=== PATIENT | male | born 1970 | race American Indian/Alaskan Native ===

== ENCOUNTER 2019-09-09 13:58 | Emergency (ER) | payer SELFPAY ==
[2019-09-09] MEDS ORDERED: COLCHICINE 0.6 MG CAP PO ONE (21:23)
[2019-09-09] MEDS ORDERED: oxyCODONE /ACETAMINOPHEN 5-325MG TAB PO ONE (21:23)
[2019-09-09] MEDS ORDERED: KETOROLAC 30 MG/1 ML INJ IM ONE (21:23)
[2019-09-09] MEDS ORDERED: dexAMETHasone 20 MG/5 ML VIAL IM ONE (21:23)
[2019-09-09 21:53] VITALS: BP 137/84
--- NOTE | 2019-09-09 23:02 | Emergency Department Report ---
ED General Adult HPI - General Chief complaint: Pain General Stated complaint: GOUT Source: patient Mode of arrival: Ambulatory Limitations: No Limitations - History of Present Illness Initial comments: Patient is a 49-year-old -[place] male with a history of chronic osteoarthritis and gouty arthropathy who presents to the ED with conjugate of acute onset persistence of the bilateral knee and ankle joint pains and swelling, and bilateral hand and wrist pain and swelling for the last 3 days worse the last 2 days. Patient states that the patient has been persistent and that he is unable to walk or sleep because of worsening pain. The patient denies dizziness, fall, traumatic injury, nausea, vomiting, diarrhea, fever, chills, chest pain or shortness of breath, heavy lifting, or low back pain. MD Complaint: Diffuse polyarticular joint pains, swelling -: Sudden, days(s) (3) Location: upper extremity (hands and wrists bilaterally), lower extremity (bilateral knees and ankles) Radiation: non-radiation Severity scale (0 -10): 8 Quality: aching, sharp Consistency: constant Improves with: none Worsens with: movement Associated Symptoms: denies other symptoms. denies: confusion, chest pain, cough, headaches, loss of appetite, malaise, shortness of breath, syncope, weakness, other Treatments Prior to Arrival: none - Related Data Home Medications Medication Instructions Recorded Confirmed Last Taken Indomethacin [Indocin] 11/09/13 11/09/13 Unknown lisinopriL [Zestril TAB] 11/09/13 11/09/13 Unknown Previous Rx's Medication Instructions Recorded Last Taken Type lisinopriL [Zestril TAB] 10 mg PO QDAY #30 tablet 11/09/13 Unknown Rx HYDROcodone/APAP 5-325 [[place] 1 each PO Q6HR PRN #12 tablet 07/09/14 Unknown Rx 5/325] Indomethacin 50 mg PO Q8H #30 capsule 07/09/14 Unknown Rx Prednisone [predniSONE 10 mg 10 mg PO .TAPER #1 tab.ds.pk 07/09/14 Unknown Rx (6-Day Pack, 21 Tabs)] Colchicine 0.6 mg PO Q8H PRN #15 capsule 09/09/19 Unknown Rx Ketorolac [Toradol] 10 mg PO Q8H PRN #20 tablet 09/09/19 Unknown Rx predniSONE [Deltasone] 60 mg PO QDAY #15 tab 02/02/20 Unknown Rx traMADoL [Ultram] 50 mg PO Q6HR PRN #12 tablet 09/09/19 Unknown Rx Allergies Allergy/AdvReac Type Severity Reaction Status Date / Time No Known Allergies Allergy Unverified 11/09/13 08:59 ED Review of Systems ROS: Stated complaint: GOUT Other details as noted in HPI Constitutional: denies: chills, fever Eyes: denies: eye pain, eye discharge, vision change ENT: denies: ear pain, throat pain Respiratory: denies: cough, shortness of breath, wheezing Cardiovascular: denies: chest pain, palpitations Endocrine: no symptoms reported Gastrointestinal: denies: abdominal pain, nausea, diarrhea Genitourinary: denies: urgency, dysuria Musculoskeletal: joint swelling (Bilateral wrists, hands, knees and ankles), arthralgia (Bilateral knees, ankles, hands and wrists), myalgia. denies: back pain Skin: denies: rash, lesions Neurological: denies: headache, weakness, paresthesias Psychiatric: denies: anxiety, depression Hematological/Lymphatic: denies: easy bleeding, easy bruising ED Past Medical Hx - Past Medical History Previous Medical History?: Yes Hx Hypertension: Yes (2010) Additional medical history: Gout - Surgical History Past Surgical History?: Yes Additional Surgical History: Skin graft secondary to barba - Social History Smoking Status: Current Every Day Smoker Substance Use Type: Alcohol - Medications Home Medications: Home Medications Medication Instructions Recorded Confirmed Last Taken Type Indomethacin [Indocin] 11/09/13 11/09/13 Unknown History lisinopriL [Zestril TAB] 11/09/13 11/09/13 Unknown History lisinopriL [Zestril TAB] 10 mg PO QDAY #30 tablet 11/09/13 Unknown Rx HYDROcodone/APAP 5-325 [[place] 1 each PO Q6HR PRN #12 tablet 07/09/14 Unknown Rx 5/325] Indomethacin 50 mg PO Q8H #30 capsule 07/09/14 Unknown Rx Prednisone [predniSONE 10 mg 10 mg PO .TAPER #1 tab.ds.pk 07/09/14 Unknown Rx (6-Day Pack, 21 Tabs)] Colchicine 0.6 mg PO Q8H PRN #15 capsule 09/09/19 Unknown Rx Ketorolac [Toradol] 10 mg PO Q8H PRN #20 tablet 09/09/19 Unknown Rx predniSONE [Deltasone] 60 mg PO QDAY #15 tab 09/09/19 Unknown Rx traMADoL [Ultram] 50 mg PO Q6HR PRN #12 tablet 09/09/19 Unknown Rx ED Physical Exam - General Limitations: No Limitations General appearance: alert, in no apparent distress - Head Head exam: Present: atraumatic, normocephalic, normal inspection - Eye Eye exam: Present: normal appearance, PERRL, EOMI Pupils: Present: normal accommodation - ENT ENT exam: Present: normal exam, normal orophraynx, mucous membranes moist, TM's normal bilaterally, normal external ear exam - Neck Neck exam: Present: normal inspection, full ROM - Respiratory Respiratory exam: Present: normal lung sounds bilaterally. Absent: respiratory distress, wheezes, rales, chest wall tenderness, accessory muscle use, prolonged expiratory - Cardiovascular Cardiovascular Exam: Present: regular rate, normal rhythm, normal heart sounds. Absent: systolic murmur, diastolic murmur, rubs, gallop - GI/Abdominal GI/Abdominal exam: Present: soft, normal bowel sounds. Absent: tenderness, guarding, hyperactive bowel sounds, hypoactive bowel sounds, mass - Extremities Exam Extremities exam: Present: normal inspection, tenderness (Bilateral knees, ankles, wrists and hands), normal capillary refill, joint swelling (Bilateral knees, ankles, hands and wrists) - Back Exam Back exam: Present: normal inspection, full ROM. Absent: tenderness, CVA tenderness (R), CVA tenderness (L), muscle spasm, paraspinal tenderness - Neurological Exam Neurological exam: Present: alert, oriented X3, CN II-XII intact, normal gait, reflexes normal - Psychiatric Psychiatric exam: Present: normal affect, normal mood - Skin Skin exam: Present: warm, dry, intact, normal color. Absent: rash ED Course Vital Signs 09/09/19 09/09/19 15:13 21:52 Temperature 97.8 F 97.9 F Pulse Rate 73 76 Respiratory 18 16 Rate Blood Pressure 168/101 Blood Pressure 137/84 [Right] O2 Sat by Pulse 98 96 Oximetry ED Medical Decision Making - Medical Decision Making This is a 49-year-old male with a history of chronic gout and osteoarthritis who presented to the ED with complaint of persistent bilateral knees, ankles, wrists and hand pain with swelling. In the ED, patient is alert and oriented 3 and is not in distress but appears in significant pain. In the ED, patient was treated for pain and discharged home on pain medications and was advised to follow-up with his primary care physician in 5-7 days for reevaluation or return to the ED immediately if symptoms get worse. - Differential Diagnosis Gouty arthropathy; Osteoarthritis; muscle strains; muscle spasm Critical care attestation.: If time is entered above; I have spent that time in minutes in the direct care of this critically ill patient, excluding procedure time. ED Disposition Clinical Impression: Acute gouty arthropathy, Chronic osteoarthritis Disposition: TO HOME OR SELFCARE Is pt being admited?: No Does the pt Need Aspirin: No Condition: Stable Instructions: Acute Gouty Arthritis (ED), Osteoarthritis (ED) Additional Instructions: Take medication with food, drink plenty of fluids and follow-up with her primary care physician in 7-10 days for reevaluation. Return to the ED immediately if symptoms get worse. Prescriptions: Colchicine 0.6 mg PO Q8H PRN #15 capsule PRN Reason: Pain , Severe (7-10) predniSONE [Deltasone] 60 mg PO QDAY #15 tab Ketorolac [Toradol] 10 mg PO Q8H PRN #20 tablet PRN Reason: Pain traMADoL [Ultram] 50 mg PO Q6HR PRN #12 tablet PRN Reason: Pain Referrals: KORINA CH MD [Staff Physician] - 3-5 Days Time of Disposition: 23:00 Print Language: UZBEK
== END 2019-09-09 23:22 | disposition home or self-care (01) ==
LOC: ED 13:58
DX: M17.0 Bilateral primary osteoarthritis of knee (principal); M10.061 Idiopathic gout, right knee; M10.062 Idiopathic gout, left knee; I10 Essential (primary) hypertension; F17.200 Nicotine dependence, unspecified, uncomplicated; Z79.899 Other long term (current) drug therapy
CPT/HCPCS: 96372; 99282; J1100; J1885

== ENCOUNTER 2020-07-30 09:15 | Outpatient (CLI) | payer OTHER ==
--- NOTE | 2020-07-30 11:12 | XRay Report ---
XR ankle BILAT 2V INDICATION / CLINICAL INFORMATION: ANKLE PAIN. COMPARISON: None available. FINDINGS: No acute fracture. Normal alignment. Moderate left greater than right degenerative changes of ankle and hindfoot. No destructive osseous lesion or suspicious periosteal reaction. Impression: 1. Moderate left greater than right ankle and hindfoot osteoarthritis. Signer Name: Darrian Yancey MD Signed: 07/30/2020 11:07 AM Workstation Name: [id number]
== END 2020-07-30 09:16 | disposition home or self-care (01) ==
LOC: XRAY 09:15
PROVIDERS: ATTEND Internal Medicine
DX: M19.072 Primary osteoarthritis, left ankle and foot (principal); M19.071 Primary osteoarthritis, right ankle and foot

== ENCOUNTER 2020-11-17 09:56 | Outpatient (CLI) | payer OTHER ==
--- NOTE | 2020-11-17 11:50 | XRay Report ---
LUMBOSACRAL SPINE 3 VIEWS INDICATION: BACK PAIN. COMPARISON: None. IMPRESSION: Normal alignment. Mild to moderate degenerative disc disease is identified at L1-2, L2- 3 and L5-S1. L2-3 appears to be the most affected level where there is bridging or near bridging late ral osteophytes. The facet joints are unremarkable. No acute osseous or soft tissue abnormality. LEFT ELBOW 2 VIEWS INDICATION: Left elbow pain. COMPARISON: None. IMPRESSION: No acute osseous or soft tissue abnormality. No significant DJD. 3 surgical clips are noted in the posterior soft tissues, correlate with history. RIGHT WRIST 2 VIEWS INDICATION: Right wrist pain. COMPARISON: None. IMPRESSION: No acute osseous or soft tissue abnormality. There appears to be subtle deformity of the distal ulna which could represent a chronic healed fracture, correlate with history. The carpal bone s are unremarkable. No significant DJD. Signer Name: Santy Walls Jr, MD Signed: 11/17/2020 11:30 AM Workstation Name: [id number]
--- NOTE | 2020-11-17 12:07 | XRay Report ---
BILATERAL SHOULDER 6 VIEW(S) INDICATION / CLINICAL INFORMATION: Disability adjudication COMPARISON: None available. FINDINGS: RIGHT SHOULDER: BONES / JOINT(S): No acute fracture or subluxation. Mild right glenohumeral joint degenerative arthro sis. SOFT TISSUES: No significant abnormality. ADDITIONAL FINDINGS: None. LEFT SHOULDER: BONES / JOINT(S): No acute fracture or subluxation. Moderate left glenohumeral joint degenerative art hrosis. SOFT TISSUES: No significant abnormality. ADDITIONAL FINDINGS: None. Signer Name: Jose Nathan MD Signed: 11/17/2020 11:57 AM Workstation Name: [id number]
== END 2020-11-17 09:57 | disposition home or self-care (01) ==
LOC: XRAY 09:56
PROVIDERS: ATTEND Internal Medicine
DX: M19.012 Primary osteoarthritis, left shoulder (principal); M19.011 Primary osteoarthritis, right shoulder; M47.817 Spondylosis without myelopathy or radiculopathy, lumbosacral region; M25.531 Pain in right wrist; M25.522 Pain in left elbow
CPT/HCPCS: 72100